=== PATIENT | female | born 1985 | race Caucasian/White ===

== ENCOUNTER 2017-05-01 07:52 | Outpatient (CLI) | payer BC ==
[2017-05-01 08:36] VITALS: BP 119/71; PULSE 91; RESP 16; TEMP 98.3
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
== END 2017-05-01 08:20 | disposition home or self-care (01) ==
LOC: FBPOP 07:52
PROVIDERS: ATTEND Obstetrics & Gynecology
DX: O71.9 Obstetric trauma, unspecified (principal); Z3A.31 31 weeks gestation of pregnancy
CPT/HCPCS: 59025; 99203

== ENCOUNTER 2017-05-01 08:23 | Emergency (ER) | payer BC ==
[2017-05-01 08:31] VITALS: BP 135/64; PULSE 106; RESP 18; TEMP 97.1
--- NOTE | 2017-05-01 08:44 | ED ---
General Adult HPI - General Chief complaint: Fall Stated complaint: fall, 30 weeks , head injury Time Seen by Provider: 05/01/17 08:32 Source: patient, RN notes reviewed Mode of arrival: ambulatory Limitations: no limitations - History of Present Illness Initial comments: 31-year-old female presents to the emergency department with a chief complaint of slip and fall. Patient states she is walking her house and she tripped. Patient states she went forward onto her right hand right wound did hit the right side of her forehead. Patient states she did not pass out she has not had a headache she has neck pain she has no nausea or vomiting. Patient states she did notice some bruising and some skin damage above the right eye as well as to the right pinky finger as well as to the right knee. She was able to get up she ate breakfast and she is not really having any pain at this time. She states that she came here her baby was evaluated and everything does appear to be normal. She was down here in the ER to be evaluated. Patient states that she has no pain at this time. Patient is up-to-date on her tetanus. Patient denies any other injuries at this time. Patient denies any recent fever, chills , shortness of breath, chest pain, back pain, abdominal pain, nausea vomiting, numbness or tingling, dysuria or hematuria, constipation or diarrhea, headaches or visual changes, or any other current symptoms. - Related Data Allergies Allergy/AdvReac Type Severity Reaction Status Date / Time Penicillins Allergy Rash/Hives Verified 05/01/17 08:31 Sulfa (Sulfonamide Allergy Rash/Hives Verified 05/01/17 08:31 Antibiotics) Review of Systems ROS Statement: Those systems with pertinent positive or pertinent negative responses have been documented in the HPI. ROS Other: All systems not noted in ROS Statement are negative. Past Medical History Past Medical History: No Reported History History of Any Multi-Drug Resistant Organisms: C-DIFF Date of last positivie culture/infection: 12/2015 MDRO Source:: developed after taking antibiotics for ear infection Past Surgical History: Adenoidectomy, Orthopedic Surgery Additional Past Surgical History / Comment(s): left elbow Smoking Status: Never smoker Past Alcohol Use History: None Reported Past Drug Use History: None Reported General Exam Limitations: no limitations General appearance: alert, in no apparent distress Head exam: Present: other (Patient does appear to have an abrasion with a small hematoma to the right forehead. No tenderness around the orbital bones.) Eye exam: Present: normal appearance, PERRL, EOMI. Absent: scleral icterus, conjunctival injection, periorbital swelling Neck exam: Present: normal inspection. Absent: tenderness, meningismus, lymphadenopathy Respiratory exam: Present: normal lung sounds bilaterally. Absent: respiratory distress, wheezes, rales, rhonchi, stridor Cardiovascular Exam: Present: regular rate, normal rhythm, normal heart sounds. Absent: systolic murmur, diastolic murmur, rubs, gallop, clicks Extremities exam: Present: full ROM, normal capillary refill. Absent: normal inspection (Patient appears to have an abrasion to the right pinky finger as well as to the right knee), tenderness, pedal edema, joint swelling, calf tenderness Neurological exam: Present: alert, oriented X3, CN II-XII intact, reflexes normal. Absent: motor sensory deficit Psychiatric exam: Present: normal affect, normal mood Skin exam: Present: warm, dry, normal color. Absent: rash Course Vital Signs 05/01/17 08:24 Temperature 97.1 F L Pulse Rate 106 H Respiratory 18 Rate Blood Pressure 135/64 O2 Sat by Pulse 100 Oximetry Medical Decision Making - Medical Decision Making 31-year-old female presents to the emergency department with a chief complaint of trip and fall. At this time we did offer the patient x-rays however since she is she states that she will hold off. This time we did discuss follow-up for the head injury. At this time we discussed it does appear to be a simple forehead contusion however we discussed this could change. We discussed what to watch for. We did discuss return parameters. We discussed follow-up we discussed all the patient's and family's questions. They stated the Alex management given the plan. This time they will be discharged home. Disposition Clinical Impression: Fall, Forehead contusion, Forehead abrasion, Abrasion of hand, right, Abrasion , right knee, initial encounter Disposition: HOME SELF-CARE Condition: Stable Instructions: Abrasion (ED), Head Injury (ED) Additional Instructions: Please use medication as discussed. Please follow up with family doctor if symptoms have not improved over the next two days. Please return to the emergency room if your symptoms increase or worsen or for any other concerns. Referrals: So Cote MD [Primary Care Provider] - 1-2 days Time of Disposition: 08:44
== END 2017-05-01 08:55 | disposition home or self-care (01) ==
LOC: EC 08:23
DX: O9A.213 Injury, poisoning and certain other consequences of external causes complicating pregnancy, third trimester (principal); S00.83XA Contusion of other part of head, initial encounter; S80.211A Abrasion, right knee, initial encounter; S60.416A Abrasion of right little finger, initial encounter; O99.89 Other specified diseases and conditions complicating pregnancy, childbirth and the puerperium; M54.2 Cervicalgia; R60.0 Localized edema; Z88.0 Allergy status to penicillin; Z88.2 Allergy status to sulfonamides; Z3A.30 30 weeks gestation of pregnancy; W01.198A Fall on same level from slipping, tripping and stumbling with subsequent striking against other object, initial encounter; Y93.01 Activity, walking, marching and hiking; Y92.008 Other place in unspecified non-institutional (private) residence as the place of occurrence of the external cause
CPT/HCPCS: 99283

== ENCOUNTER → 2019-02-17 | Outpatient (CLI) | payer BC ==
--- NOTE | 2019-02-17 22:40 | MR ---
MRI CERVICAL SPINE: CLINICAL HISTORY: Herniated disc and intractable cervicalgia after physical therapy per order. Headac he and neck pain for 4 months per patient. TECHNIQUE: Multiplanar, multisequence imaging of the cervical spine is performed without IV contrast. COMPARISON: Cervical spine x-ray May 12, 2013.. FINDINGS: Sagittal images of the cervical spine show the craniocervical junction to appear within nor mal limits. The cervical and upper thoracic spinal cord is normal in course, caliber, and signal. V ertebral alignment is anatomic. The vertebral body and intravertebral disk heights are normal. Multi level small posterior disc herniations are seen on sagittal images effacing anterior thecal sac. The bone marrow signal intensity is within normal limits. Axial images show the C2-C3 and C3-C4 levels to appear within normal limits. Axial images at the C4-C5 level show left paracentral disc protrusion effacing anterior thecal sac. Axial images at C5-C6 level show right paracentral disc protrusion effacing the anterior thecal sac o n axial image 22. Axial images at C6-C7 levels from broad-based right paracentral disc protrusion effacing the anterior thecal sac with mild to moderate left-sided neural foraminal narrowing due to foraminal disc protrus ion component. Axial images at the C7-T1 level are felt within normal limits. IMPRESSION: Multilevel disc herniations mid to lower cervical spine most prominent at C6-C7 level as detailed above.
== END ==
LOC: RADMRIMAIN 16:54
PROVIDERS: ATTEND Psychiatry & Neurology Neurology
DX: M48.02 Spinal stenosis, cervical region (principal); M50.223 Other cervical disc displacement at C6-C7 level
CPT/HCPCS: 72141

== ENCOUNTER 2020-11-24 14:42 | Inpatient (IN) | payer BC ==
[2020-11-24] MEDS ORDERED: METHYLERGONOVINE 0.2 MG/ML 1 ML AMP IM PRN (15:35)
[2020-11-24] MEDS ORDERED: OXYTOCIN 10 UNIT/ML 1 ML VIAL IM PRN (15:35)
[2020-11-24] MEDS ORDERED: LIDOCAINE 0.5% (PF) 5 MG/ML (50 ML SDV) SQ PRN (15:35)
[2020-11-24] MEDS ORDERED: TERBUTALINE 1 MG/ML VIAL SQ PRN (15:35)
[2020-11-24] MEDS ORDERED: CARBOPROST TROMETHAMINE 250 MCG/ML 1 ML AMP IM PRN (15:35)
[2020-11-24] MEDS ORDERED: OXYTOCIN 30 UNITS/500 ML NS 30 UNIT in SALINE 1 500ML.BAG IV SCH (15:45)
[2020-11-24] MEDS ORDERED: LACTATED RINGERS 1,000 ML IV SCH (15:45)
--- NOTE | 2020-11-24 17:01 | P.HPOB ---
History of Present Illness H&P Date: 11/24/20 Chief Complaint: Spontaneous rupture of membranes This is a 35-year-old female 2 para 1 with an estimated date of confinement of 11/28/2020, estimated gestational age of 39-4/7 weeks who presents to labor and delivery with spontaneous rupture membranes at approximate ly 1:30 PM today with clear fluid noted. She has been feeling irregular contractions. course has been essentially uncomplicated. She has been following with Dr. Contreras for hypothyroidism and has been taking Zoloft for anxiety. labs: GC/Chlamydia/Trichomonas-negative Hepatitis B surface antigen-negative RPR-nonreactive Rubella-immune Blood type-A+ Antibody screen-negative HIV-nonreactive Hemoglobin-12 Toxoplasma-negative Random glucose-74 Obstetrical ultrasound-normal anatomy One hour Glucola-119 B strep coccus-positive OB history: . History of 1 vaginal delivery at term with no complications. Gynecologic history: No history of sexually transmitted diseases. Social history: She is . She works as a chemist biological. Review of Systems Constitutional: Denies chills, Denies fever Eyes: denies blurred vision, denies pain Ears, nose, mouth and throat: Denies headache, Denies sore throat Cardiovascular: Denies chest pain, Denies shortness of breath Respiratory: Denies cough Gastrointestinal: Reports abdominal pain (Contractions), Reports heartburn Genitourinary: Reports pelvic pain, Reports Musculoskeletal: Reports low back pain Integumentary: Denies pruritus, Denies rash Neurological: Denies numbness, Denies weakness Psychiatric: Reports anxiety, Denies depression Past Medical History Past Medical History: GERD/Reflux History of Any Multi-Drug Resistant Organisms: C-DIFF Date of last positivie culture/infection: 12/2015 MDRO Source:: developed after taking antibiotics for ear infection Past Surgical History: Adenoidectomy, Orthopedic Surgery Additional Past Surgical History / Comment(s): left elbow Past Anesthesia/Blood Transfusion Reactions: No Reported Reaction Past Psychological History: Anxiety Past Alcohol Use History: None Reported Past Drug Use History: None Reported - Past Family History Mother Family Medical History: No Reported History Medications and Allergies Home Medications Medication Instructions Recorded Confirmed Type RX: Pnv,Calcium 72/Iron/Folic Acid 1 tab PO DAILY 05/01/17 11/24/20 History [ Plus Tablet] Levothyroxine Sodium [Synthroid] 50 mcg PO DAILY MDD 50 MCG 11/24/20 11/24/20 History RX: Iron Ag/C/B12/Ca/Suc.acid/Stom 1 each PO DAILY MDD 1 TAB 11/24/20 11/24/20 History [Multigen] Sertraline [Zoloft] 50 mg PO DAILY MDD 50 MG 11/24/20 11/24/20 History Allergies Allergy/AdvReac Type Severity Reaction Status Date / Time Penicillins Allergy Rash/Hives Verified 07/11/17 06:03 Sulfa (Sulfonamide Allergy Rash/Hives Verified 07/11/17 06:03 Antibiotics) clindamycin AdvReac Diarrhea Verified 11/24/20 15:16 Exam Osteopathic Statement: *. No significant issues noted on an osteopathic structural exam other than those noted in the History and Physical/Consult. Intake and Output 11/24/20 11/24/20 11/24/20 06:59 14:59 22:59 Other: Weight 68.946 kg HEENT: Within normal limits Heart: Regular rate and rhythm Lungs: Clear to auscultation bilaterally Abdomen: Cervix: 2-3 cm/60-70%/-2 station. Grossly ruptured clear fluid. Positive amnisure. heart tones: Reactive with category 1 tracing Contractions: Irregular every 5-7 minutes Extremities: Negative Homans Assessment and Plan (1) 39 weeks gestation of Current Visit: Yes Status: Acute Code(s): Z3A.39 - 39 WEEKS GESTATION OF SNOMED Code(s): 74005587 (2) Group B Streptococcus carrier, +RV culture, currently Current Visit: Yes Status: Acute Code(s): O99.820 - STREPTOCOCCUS B CARRIER STATE COMPLICATING SNOMED Code(s): 2621125324922 Plan: Admission for early labor. Antibiotic prophylaxis for group B streptococcus. Epidural anesthesia when desired. Oxytocin augmentation of labor. Expectant management.
[2020-11-24 18:43] LABS: Basophils % (A) 0 %; Eosinophils # (A) 0.3 k/uL (0-0.7); Eosinophils % (A) 4 %; HCT 34.1 % (34.0-46.0); HGB 11.6 gm/dL (11.4-16.0); Lymphocytes # (A) 1.6 k/uL (1.0-4.8); Lymphocytes % (A) 21 %; MCH 29.2 pg (25.0-35.0); MCHC 34.1 g/dL (31.0-37.0); MCV 85.7 fL (80.0-100.0); Mean Platelet Volume 9.9; Monocytes # (A) 0.6 k/uL (0-1.0); Monocytes % (A) 7 %; Neutrophils # (A) 5.2 k/uL (1.3-7.7); Neutrophils % (A) 67 %; Platelet Count 197 k/uL (150-450); RBC 3.98 m/uL (3.80-5.40); RDW 15.7 % (11.5-15.5); WBC 7.7 k/uL (3.8-10.6)
--- NOTE | 2020-11-24 18:46 | P.MSEPDOC ---
Presenting Problems - Arrival Data Date of Arrival on Unit: 11/23/20 Time of Arrival on Unit: 14:40 Mode of Transport: Ambulatory - Complaint OB-Reason for Admission/Chief Complaint: Rule Out SROM Comment: srom 1332 at 39 3/7 wks gestation. pos gbs. multiple antibiotic allergies Medical History - Information : 2 Para: 1 Term: 1 : 0 Abortions: Spontaneous or Elective: 0 Number of Living Children: 1 - Gestational Age Gestational Age by CHEMA (wks/days): 39 Weeks and 3 Days Review of Systems - Review of Systems Constitutional: No problems Breast: No problems ENT: No problems Cardiovascular: No problems Respiratory: No problems Gastrointestinal: No problems Genitourinary: No problems Musculoskeletal: No problems Neurological: No problems Skin: No problems Vital Signs - Temperature Temperature: 98.6 F Temperature Source: Oral - Pulse Right Brachial Pulse Rate: 102 Pulse Assessment Method: Automatic Cuff - Respirations Respiratory Rate: 18 Oxygen Delivery Method: Room Air O2 Sat by Pulse Oximetry: 97 - Blood Pressure Right Arm Blood Pressure: 109/73 Blood Pressure Mean: 85 Blood Pressure Source: Automatic Cuff Medical Screen Scoring (Pre) - Cervical Exam Dilation: 1-3 cm = 1 Effacement: More than 50% = 2 Membranes: Ruptured = 3 - Uterine Contractions Frequency: N/A Duration: N/A Intensity: N/A - Maternal Vital Signs Maternal Temperature: N/A Maternal Blood Pressure: N/A Signs of Preeclampsia: N/A Maternal Respirations: N/A - Maternal Trauma Maternal Trauma: N/A - Assessment - Baby A Baseline FHR: 135 Heart Rate - NICHD Category: Category I (Normal) = 0 NST: Reactive Station: N/A - Total Score - Baby A Total Score - Baby A: 6 - Total Score - Baby B Total Score - Baby B: 6 - Total Score - Baby C Total Score - Baby C: 6 - Level of Risk - Baby A Level of Risk - Baby A: Medium (6-9) - Level of Risk - Baby B Level of Risk - Baby B: Medium (6-9) - Level of Risk - Baby C Level of Risk - Baby C: Medium (6-9) Physician Notification (Pre) - Physician Notified Physician Notified Date: 11/24/20 Physician Notified Time: 15:35 New Order Received: Yes - Notification Comment Comment: admit. antibiotics, pitocin augmentation Disposition - Disposition OB Disposition: Admit I agree with the RN Medical Screening Exam: Yes Case reviewed; plan agreed upon as documented in EMR&OBIX.: Yes Diagnosis: ENCOUNTER FOR FULL-TERM UNCOMPLICATED DELIVERY
[2020-11-24] MEDS ORDERED: fentaNYL (PF) 50 MCG/ML 5 ML AMP ONE (19:14)
[2020-11-24] MEDS ORDERED: SODIUM CHLORIDE 0.9% 100 ML BAG ONE (19:14)
[2020-11-24] MEDS ORDERED: ROPIVACAINE 5MG/ML 20ML VIAL ONE (19:14)
[2020-11-24] MEDS ORDERED: CITRIC ACID-SODIUM CITRATE 15 ML CUP PO ONE (20:18)
--- NOTE | 2020-11-24 23:56 | P.PROBDLV ---
Vaginal Delivery Note - . Vaginal Delivery Note: The patient progressed to complete dilation after oxytocin augmentation of labor and epidural anesthesia. Once reaching complete dilation, she began pushing. She pushed for a little over an hour period during the last few pushes, heart tones did drop into the 70s and 80s. At this time perineum was anesthetized with 1% lidocaine and a midline episiotomy was cut. With one further push, the 's head delivered across the perineum followed by the anterior shoulder. Nose and mouth were bulb suctioned at the perineum. With one further push, the remainder the infant easily delivered reducing nuchal cord times one around the body with delivery. Infant was placed on mother's abdomen, cord was clamped and cut, and was taken to warmer for evaluation by nursing staff. A viable male infant is noted with scores of 2 at 1 minute, 7 at 5 minutes, and 9 at 10 minutes. Placenta delivered shortly thereafter, intact, with a three-vessel cord. A couple large clots delivered shortly after the placenta. Uterus did contract well after oxytocin was given and uterine massage was carried out. Inspection of the perineum revealed a midline episiotomy with no further extension. This area was anesthetized with 1% lidocaine and then sutured with 3-0 and 2-0 Vicryl suture in the usual multilayer fashion. Estimated blood loss is approximately 200 mL's. Both mother and infant are in stable condition.
[2020-11-25] MEDS ORDERED: OXYTOCIN 30 UNITS/500 ML NS 30 UNIT in SALINE 1 500ML.BAG IV SCH
[2020-11-25] MEDS ORDERED: ACETAMINOPHEN TAB 325 MG TAB PO PRN
[2020-11-25] MEDS ORDERED: diphenhydrAMINE 50 MG CAP PO PRN
[2020-11-25] MEDS ORDERED: LANOLIN CREAM 5 GM TUBE TOPICAL PRN
[2020-11-25] MEDS ORDERED: BENZOCAINE/MENTHOL SPRAY 1 GM/SPRAY AEROSOL TOPICAL PRN
[2020-11-25] MEDS ORDERED: ZOLPIDEM 5 MG TAB PO PRN
[2020-11-25] MEDS ORDERED: HYDROCORTISONE 2.5% RECTAL CREAM 30 GM TUBE RECTAL PRN
[2020-11-25] MEDS ORDERED: diphenhydrAMINE 50 MG/ML 1 ML VIAL IVP PRN ×2
[2020-11-25] MEDS ORDERED: diphenhydrAMINE 25 MG CAP PO PRN
[2020-11-25] MEDS ORDERED: SIMETHICONE 80 MG CHEWABLE PO PRN
[2020-11-25] MEDS: IBUPROFEN 600 MG TAB PO SCH ×4 (00:20→19:48)
[2020-11-25 06:41] LABS: Basophils % (A) 0 %; Eosinophils % (A) 0 %; HCT 32.2 % (34.0-46.0); HGB 10.5 gm/dL (11.4-16.0); Lymphocytes # (A) 1.1 k/uL (1.0-4.8); Lymphocytes % (A) 8 %; MCH 28.2 pg (25.0-35.0); MCHC 32.7 g/dL (31.0-37.0); MCV 86.4 fL (80.0-100.0); Mean Platelet Volume 10.2; Monocytes # (A) 0.8 k/uL (0-1.0); Monocytes % (A) 6 %; Neutrophils # (A) 12.1 k/uL (1.3-7.7); Neutrophils % (A) 86 %; Platelet Count 181 k/uL (150-450); RBC 3.72 m/uL (3.80-5.40); RDW 15.9 % (11.5-15.5); WBC 14.1 k/uL (3.8-10.6)
[2020-11-25] MEDS: SENNOSIDES-DOCUSATE SODIUM 1 EACH TAB PO SCH ×2 (07:48→19:48)
[2020-11-25] MEDS: LEVOTHYROXINE 50 MCG TAB PO SCH (07:49)
[2020-11-25] MEDS: SERTRALINE 50 MG TAB PO SCH (07:50)
[2020-11-25] MEDS ORDERED: PRENATAL VIT-IRON-FOLIC ACID 1 EACH CAP PO SCH (09:00)
--- NOTE | 2020-11-25 12:28 | P.PNOBGVD ---
Subjective - Subjective Principal diagnosis: Status post vaginal delivery day #1 Interval history: Patient is doing okay. Lochia is decreasing. Pain is fairly well controlled. Lochia is minimal. She is working on breast-feeding. Patient reports: Reports appetite normal, Reports voiding normally, Reports pain well controlled, Reports ambulating normally Revere: other (Baby is not nursing well yet.) Objective - Latest Vital Signs Latest vital signs: Vital Signs Temp Pulse Resp BP Pulse Ox 11/25/20 07:34 98.6 F 64 18 100/62 11/25/20 02:04 98.1 F 64 16 111/69 11/25/20 01:34 97.5 F L 67 16 110/72 11/25/20 01:04 97.5 F L 67 16 101/56 11/25/20 00:49 98.6 F 74 16 105/64 11/25/20 00:34 98.6 F 81 16 112/69 11/25/20 00:19 99.8 F H 76 16 112/65 11/25/20 00:04 98.6 F 75 16 108/68 11/24/20 18:46 98.6 F 102 H 18 109/73 97 11/24/20 15:40 98.6 F 102 H 18 109/73 97 11/24/20 15:28 98.6 F 102 H 18 109/73 97 Intake and Output 11/24/20 11/25/20 11/25/20 22:59 06:59 14:59 Output Total 720 Balance -720 Output: Urine 500 Estimated Blood Loss 220 Other: # Voids 2 2 Weight 68.946 kg - Exam Extremities: Present: normal. Absent: tenderness Abdomen: Present: soft. Absent: distention, tenderness Uterus: Present: normal, firm. Absent: tenderness - Labs Labs: Abnormal Lab Results - Last 24 Hours (Table) 11/24/20 11/25/20 Range/Units 14:50 06:06 WBC 14.1 H (3.8-10.6) k/uL RBC 3.72 L (3.80-5.40) m/uL Hgb 10.5 L (11.4-16.0) gm/dL Hct 32.2 L (34.0-46.0) % RDW 15.7 H 15.9 H (11.5-15.5) % Neutrophils # 12.1 H (1.3-7.7) k/uL Assessment and Plan Assessment: Status post vaginal delivery day #1 (1) 39 weeks gestation of Current Visit: Yes Status: Acute Code(s): Z3A.39 - 39 WEEKS GESTATION OF SNOMED Code(s): 25169397 (2) Group B Streptococcus carrier, +RV culture, currently Current Visit: Yes Status: Acute Code(s): O99.820 - STREPTOCOCCUS B CARRIER STATE COMPLICATING SNOMED Code(s): 9653912026266 Plan: Continue with care. Anticipate discharge home tomorrow.
[2020-11-25 16:32] VITALS: RESP 16
[2020-11-26] MEDS: LEVOTHYROXINE 50 MCG TAB PO SCH (07:54)
[2020-11-26] MEDS: SERTRALINE 50 MG TAB PO SCH (07:54)
[2020-11-26] MEDS: SENNOSIDES-DOCUSATE SODIUM 1 EACH TAB PO SCH (07:54)
[2020-11-26] MEDS: IBUPROFEN 600 MG TAB PO SCH ×2 (07:55→08:04)
[2020-11-26 08:03] VITALS: BP 109/70; PULSE 63; TEMP 97.7
--- NOTE | 2020-11-26 11:47 | P.DS ---
Providers Date of admission: 11/24/20 15:45 Expected date of discharge: 11/26/20 Attending physician: Peggy Herron Primary care physician: Peggy Herron - Discharge Diagnosis(es) (1) 39 weeks gestation of Current Visit: Yes Status: Acute (2) Group B Streptococcus carrier, +RV culture, currently Current Visit: Yes Status: Acute Hospital Course: This is a 35-year-old female 2 para 1 at 39-3/7 weeks who presented in active labor. She did receive antibiotic prophylaxis for group B streptococcus. She delivered vaginally a viable male on 11/24/2020 with scores of 2 at 1 minute and 7 at 5 minutes and 9 at 10 minutes, and infant weight of 8 lbs. 7 oz. Her course has been uncomplicated. Lochia is decreasing. She is doing well with breast-feeding. Vital signs are stable. Abdomen is soft with fundus firm and nontender. Extremities show negative Homans. Impression is status post vaginal delivery day #2. Plan is to discharge home today. Routine instructions are given. She has a breast pump at home. She will be given a prescription for ibuprofen. She is advised follow-up in the office in 6 weeks for check. She is advised to call the office if she has any further questions or concerns prior to her appointment time. Procedures: Oxytocin augmentation of labor Spontaneous vaginal delivery of a viable male on 11/24/2020 Patient Condition at Discharge: Stable Plan - Discharge Summary New Discharge Prescriptions: New Ibuprofen [Motrin] 600 mg PO Q6H #60 tab Continue Pnv,Calcium 72/Iron/Folic Acid [ Plus Tablet] 1 tab PO DAILY Levothyroxine Sodium [Synthroid] 50 mcg PO DAILY MDD 50 MCG Sertraline [Zoloft] 50 mg PO DAILY MDD 50 MG Iron Ag/C/B12/Ca/Suc.acid/Stom [Multigen] 1 each PO DAILY MDD 1 TAB Discharge Medication List Pnv,Calcium 72/Iron/Folic Acid [ Plus Tablet] 1 tab PO DAILY 05/01/17 [History] Iron Ag/C/B12/Ca/Suc.acid/Stom [Multigen] 1 each PO DAILY MDD 1 TAB 11/24/20 [History] Levothyroxine Sodium [Synthroid] 50 mcg PO DAILY MDD 50 MCG 11/24/20 [History] Sertraline [Zoloft] 50 mg PO DAILY MDD 50 MG 11/24/20 [History] Ibuprofen [Motrin] 600 mg PO Q6H #60 tab 11/26/20 [Rx] Follow up Appointment(s)/Referral(s): Peggy Herron DO [Primary Care Provider] - 6 Weeks Activity/Diet/Wound Care/Special Instructions: Instructions 1. Do not begin any exercise program for 3 weeks. 2. Do not resume sexual relations for 3 weeks or longer if uncomfortable. 3. You may take tub baths or showers at any time. 4. You may use tampons if desired after 3 weeks. 5. Keep the area of episiotomy (stitches) clean and dry. 6. If you are not nursing, wear a good fitting, supportive bra during the day and limit fluid intake for at least 1 week to prevent breast engorgement. 7. Call the office, [phone], within the next week to make appointment for your 6 week checkup if it has not already been made. 8. Report any of the following occurrences to the doctor promptly: a. Heavy, excessive bleeding b. Chills, fever c. Burning or frequency of urination d. Pain or redness and breasts if nursing e. Increasing pain or swelling in episiotomy (stitches). In addition to the above instructions, the following additional should be followed: 1. No heavy lifting or straining (exercising) until after 6 week checkup. 2. Keep abdominal incision clean and dry: You may wear a dressing if more comfortable. 3. Make office appointment for 10 days after going home or as instructed by her doctor. Discharge Disposition: HOME SELF-CARE
== END 2020-11-26 14:21 | disposition home or self-care (01) | DRG 807 ==
LOC: FBPOP 14:42 → 4FBP 15:45
PROVIDERS: ADMIT Obstetrics & Gynecology; ATTEND Obstetrics & Gynecology
PROC: 10E0XZZ Delivery of Products of Conception, External Approach (ICD-10-PCS; principal; 2020-11-24)
DX: O99.344 Other mental disorders complicating childbirth (principal); Z37.0 Single live birth; O99.284 Endocrine, nutritional and metabolic diseases complicating childbirth; E03.9 Hypothyroidism, unspecified; O99.824 Streptococcus B carrier state complicating childbirth; Z3A.39 39 weeks gestation of pregnancy; O69.81X0 Labor and delivery complicated by cord around neck, without compression, not applicable or unspecified; Z79.890 Hormone replacement therapy; F41.9 Anxiety disorder, unspecified
CPT/HCPCS: 59025; 84112; 85025; 86850; 86870; 86880; 86900; 86901; 99213